=== PATIENT | female | born 1975 | race Caucasian/White ===

== ENCOUNTER 2021-06-05 16:53 | Emergency (ER) | payer BC, OTHER | END 2021-06-05 20:00 | disposition home or self-care (01) | LOC: ER1 16:53 | DX: R00.2 Palpitations (principal); E07.9 Disorder of thyroid, unspecified; F17.210 Nicotine dependence, cigarettes, uncomplicated | CPT/HCPCS: 93005; 99284 ==

== ENCOUNTER 2021-06-16 14:54 | Emergency (ER) | payer BC, OTHER ==
[2021-06-16 16:41] LABS: HEMOGLOBIN 14.2 gm/dl (12.3-15.3); RED BLOOD COUNT 4.79 M/UL (4.00-5.10); WHITE BLOOD COUNT 9.2 K/UL (4.5-11.0)
[2021-06-16 17:17] LABS: BUN/CREATININE RATIO 9 (0-10)
== END 2021-06-16 15:01 | disposition home or self-care (01) ==
LOC: ER1 14:54
PROVIDERS: Physician Assistant
DX: F41.9 Anxiety disorder, unspecified (principal); R20.2 Paresthesia of skin; F17.210 Nicotine dependence, cigarettes, uncomplicated
CPT/HCPCS: 71045; 80053; 82550; 82553; 83874; 84484; 85025; 99285